=== PATIENT | female | born 1980 | race Caucasian/White ===

== ENCOUNTER 2018-08-24 13:06 | Emergency (ER) | payer MEDICAID ==
[~2018-08-24] VITALS: Ht 157.5 cm; Wt 120.2 kg
[2018-08-24 13:10] VITALS: Ht 157.5 cm; Wt 120.2 kg
[2018-08-24 13:53] LABS: BASOPHIL % 0.6 % (0-2); RED CELL DISTRIBUTION WIDTH 12.8 % (11.5-14.5)
[2018-08-24 13:56] LABS: CALCIUM 8.6 mg/dL (8.5-10.1); CARBON DIOXIDE 29.1 mmol/L (21-32); CHLORIDE SERUM 105 mmol/L (98-107); CREATININE SERUM 0.6 mg/dL (0.6-1.0); GFR1 > 60 mL/min; GLUCOSE SERUM 124 mg/dL (74-106); POTASSIUM SERUM 3.7 mmol/L (3.5-5.1); SODIUM SERUM 141 mmol/L (136-145)
[2018-08-24 13:57] LABS: PLATELET COUNT 415 x10^3mcL (130-400)
[2018-08-24 14:01] LABS: ALKALINE PHOSPHATASE 80 U/L (46-116); ALT/SGPT 23 U/L (14-59); AST/SGOT 20 U/L (15-37); BILIRUBIN TOTAL 0.42 mg/dL (0.20-1.00); LIPASE 97 IU/L (73-393); TOTAL PROTEIN, SERUM 7.6 g/dL (6.4-8.2)
[2018-08-24 14:02] LABS: ALBUMIN 3.1 g/dL (3.4-5.0)
[2018-08-24 17:45] VITALS: BP 109/64
[2018-08-24 18:45] LABS: UA SPECIFIC GRAVITY 1.025 (1.005-1.035); microscopic required? YES; urine erythrocyte 1+ (NEGATIVE)
== END 2018-08-24 17:45 | disposition home or self-care (01) ==
LOC: ED 13:06
PROVIDERS: Emergency Medicine
DX: R10.32 Left lower quadrant pain (principal); R31.29 Other microscopic hematuria; E66.9 Obesity, unspecified; Z68.42 Body mass index [BMI] 45.0-49.9, adult; Z98.890 Other specified postprocedural states; Z88.0 Allergy status to penicillin
CPT/HCPCS: 36415